=== PATIENT | female | born 1975 | race American Indian/Alaskan Native ===

== ENCOUNTER 2017-01-14 22:58 | Day surgery (SDC) | payer MEDICAID ==
[2017-01-15 01:27] LABS: Hematocrit 33.4 % (30.3-42.9); Hemoglobin 11.7 gm/dl (10.1-14.3); Mean Corpuscular HGB Conc 35 % (30-34); Mean Corpuscular Hemoglobin 27 pg (28-32); Mean Corpuscular Volume 77 fl (79-97); Platelet Count 306 K/mm3 (140-440); Red Blood Count 4.36 M/mm3 (3.65-5.03); Red Cell Distribution Width 16.1 % (13.2-15.2); White Blood Count 11.8 K/mm3 (4.5-11.0)
[2017-01-15 02:52] LABS: Bilirubin,Urine NEG (Negative); Blood,Urine LG (Negative); Ketones,Urine NEG (Negative); Leukocyte Esterase,Urine SM (Negative); Mucus,Urine FEW /HPF; Nitrite,Urine NEG (Negative); Urobilinogen,Urine < 2.0 mg/dL (<2.0)
--- NOTE | 2017-01-15 03:59 | Ultrasound Report ---
FINAL REPORT PROCEDURE: US OB \T\lt; = 14 WEEKS FETUS TECHNIQUE: Real-time transabdominal sonography of the uterus, placenta, amniotic fluid, adnexa, and fetus was performed with image documentation. Measurements were obtained to determine age/size. M-mode Doppler was used to document heartbeat. CPT 79671 HISTORY: vaginal bleeding COMPARISON: No prior studies are available for comparison. FINDINGS: There is an intrauterine gestational sac without evidence of pole, yolk sac or cardiac activity. There is an adjacent subchorionic hematoma measuring 4 millimeters. The mean sac diameter is 2.8 centimeters which corresponds to an estimated gestational age of 7 weeks and 6 days. The right ovary is not seen. Left ovary measures 2.5 x 1.6 x 2.7 centimeters. There is a 1.1 centimeters cyst. There is no torsion. There is no free fluid. IMPRESSION: Gestational sac corresponding to 7 weeks 6 day . However there is no pole, yolk sac or cardiac activity. Blighted ovum not excluded. Correlation with beta HCG measurements may be helpful. There is a 4 millimeter subchorionic hematoma. No ectopic is seen. The right ovary is not seen. There is a 1.1 centimeter cyst in the left ovary.
--- NOTE | 2017-01-15 04:00 | Ultrasound Report ---
FINAL REPORT PROCEDURE: US OB TRANSVAGINAL TECHNIQUE: Real-time TRANSVAGINAL sonography of the uterus, placenta, amniotic fluid, adnexa, and fetus was performed with image documentation. Measurements were obtained to determine age/size. M-mode Doppler was used to document heartbeat. HISTORY: vaginal bleeding COMPARISON: No prior studies are available for comparison. FINDINGS: There is an intrauterine gestational sac without evidence of pole, yolk sac or cardiac activity. There is an adjacent subchorionic hematoma measuring 4 millimeters. The mean sac diameter is 2.8 centimeters which corresponds to an estimated gestational age of 7 weeks and 6 days. The right ovary is not seen. Left ovary measures 2.5 x 1.6 x 2.7 centimeters. There is a 1.1 centimeters cyst. There is no torsion. There is no free fluid. IMPRESSION: Gestational sac corresponding to 7 weeks 6 day . However there is no pole, yolk sac or cardiac activity. Blighted ovum not excluded. Correlation with beta HCG measurements may be helpful. There is a 4 millimeter subchorionic hematoma. No ectopic is seen. The right ovary is not seen. There is a 1.1 centimeter cyst in the left ovary.
[2017-01-15 06:42] LABS: Anisocytosis 1+; Basophils % (Manual) 0 % (0.0-1.8); Blastocytes % (Manual) 0 %; Stomatocytes Few
[2017-01-15 06:43] LABS: Diff Status Complete; Platelet Estimate Consistent w Auto
[2017-01-15] MEDS ORDERED: TYLENOL PO ONE (09:24)
[2017-01-15] MEDS ORDERED: MACROBID PO ONE (09:27)
--- NOTE | 2017-01-15 09:28 | Emergency Department Report ---
ED Female HPI - General Chief complaint: Vaginal Bleeding Stated complaint: VAGINAL BLEEDING/11 WKS PREG Time Seen by Provider: 01/15/17 08:24 Source: patient Mode of arrival: Ambulatory Limitations: No Limitations - History of Present Illness Initial comments: 41-year-old female witha past medical history presents to the hospital 11 weeks complaining of suprapubic cramping and vaginal bleeding that started last night. Pain is rated 10/10 in intensity, constant, worse palpation, no alleviating factors. Patient also started having vaginal bleeding with passage of clots and has used 8 pads since symptom onset last night. This is her fourth and she has 2 living children a history one miscarriage. She states she had outpatient ultrasound last week and was told that it was too tiny see anything and she was scheduled for repeat ultrasound in the next 2 days. - Related Data Home Medications Medication Instructions Recorded Confirmed Last Taken Acetaminophen with Codeine 1 tab PO PRN PRN 10/27/14 10/27/14 10/26/14 21:00 [Acetaminophen-Cod #3 Tablet] 1 Valacyclovir HCl [valACYclovir] 400 mg PO TID 10/27/14 10/27/14 10/26/14 21:00 400 Previous Rx's Medication Instructions Recorded Last Taken Type Ferrous Sulfate [Feosol 325 MG tab] 325 mg PO BID #60 tablet 10/27/14 Unknown Rx HYDROcodone/APAP 5-325 [[place] 1 each PO Q6HR PRN #30 tablet 10/27/14 Unknown Rx 5/325] Ibuprofen [Motrin] 800 mg PO Q8H PRN #30 tablet 10/27/14 Unknown Rx [id number]/Iron Fumarate/FA/Dss 1 each PO QDAY #30 tablet 10/27/14 Unknown Rx [ 19 Tablet] Allergies Allergy/AdvReac Type Severity Reaction Status Date / Time aspirin AdvReac Unknown Verified 10/28/14 05:08 ED Review of Systems ROS: Stated complaint: VAGINAL BLEEDING/11 WKS PREG Other details as noted in HPI Comment: All other systems reviewed and negative Other: Constitutional: No fevers chills Eyes: No eye pain visual changes ENT: No ear pain or throat pain Neck: Denies pain Respiratory: Denies cough wheezing shortness of breath Cardiovascular: Denies chest pain, palpitations, syncope GI: As per HPI : Denies dysuria Musculoskeletal: Denies back pain, joint swelling Skin: Denies rash, lesions, erythema Neurologic: Denies headache, numbness, weakness Psychiatric: Denies suicidal ideation, hallucinations Hematological/lymphatic: Denies easy bruising, lymphadenopathy ED Past Medical Hx - Past Medical History Previous Medical History?: No Hx Hypertension: No Hx Congestive Heart Failure: No Hx Diabetes: No Hx Deep Vein Thrombosis: No Hx Renal Disease: No Hx Sickle Cell Disease: No Hx Seizures: No Hx Asthma: No Hx COPD: No Hx HIV: No - Surgical History Past Surgical History?: No - Social History Smoking Status: Never Smoker Substance Use Type: None - Medications Home Medications: Home Medications Medication Instructions Recorded Confirmed Last Taken Type Acetaminophen with Codeine 1 tab PO PRN PRN 10/27/14 10/27/14 10/26/14 21:00 History [Acetaminophen-Cod #3 Tablet] 1 Ferrous Sulfate [Feosol 325 MG tab] 325 mg PO BID #60 tablet 10/27/14 Unknown Rx HYDROcodone/APAP 5-325 [[place] 1 each PO Q6HR PRN #30 tablet 10/27/14 Unknown Rx 5/325] Ibuprofen [Motrin] 800 mg PO Q8H PRN #30 tablet 10/27/14 Unknown Rx [id number]/Iron Fumarate/FA/Dss 1 each PO QDAY #30 tablet 10/27/14 Unknown Rx [ 19 Tablet] Valacyclovir HCl [valACYclovir] 400 mg PO TID 10/27/14 10/27/14 10/26/14 21:00 History 400 ED Physical Exam - General Limitations: No Limitations - Other Other exam information: General: No limitations, patient is alert in no acute distress Head exam: Atraumatic, normocephalic Eyes exam: Normal appearance ENT: Moist mucous membrane, normal oropharynx Neck exam: Normal inspection, full range of motion, no meningismus nontender Respiratory exam: Clear to auscultation bilateral, no wheezes, rales, crackles Cardiovascular: Normal rate and rhythm, normal heart sounds Abdomen: Soft, nondistended, serum pubic tenderness, with normal bowel sounds, no rebound, or guarding Extremity: Full range of motion normal inspection no deformity Back: Normal Inspection, full range of motion, no tenderness Neurologic: Alert, oriented x3, cranial nerves intact, no motor or sensory deficit Psychiatric: normal affect, normal mood Skin: Warm, dry, intact ED Course Vital Signs 01/15/17 01/15/17 01/15/17 00:26 03:58 07:08 Temperature 99.1 F 98.1 F 98.9 F Pulse Rate 73 75 77 Respiratory 18 14 16 Rate Blood Pressure 160/117 132/93 Blood Pressure 132/76 [Left] O2 Sat by Pulse 100 99 100 Oximetry 01/15/17 01/15/17 09:00 11:30 Temperature 98.5 F Pulse Rate 74 79 Respiratory 16 16 Rate Blood Pressure Blood Pressure 152/92 144/91 [Left] O2 Sat by Pulse 100 99 Oximetry - Reevaluation(s) Reevaluation #1: 01/15/17 09:28 Macrobid and Tylenol ordered. - Consultations Consultation #1: 01/15/17 09:28 REGISTERED CLINICAL DIETITIAN paged 01/15/17 09:[address] Garcia network controller STRADDLE BUGGY OPERATOR. He will, evaluated the patient once he is done with his surgery. 01/15/17 13:30 Dr Garcia in ED and will take pt to the OR ED Medical Decision Making - Lab Data Result diagrams: 01/15/17 00:55 Lab Results 01/15/17 01/15/17 01/15/17 Range/Units 00:55 00:55 00:55 WBC 11.8 H (4.5-11.0) K/mm3 RBC 4.36 (3.65-5.03) M/mm3 Hgb 11.7 (10.1-14.3) gm/dl Hct 33.4 (30.3-42.9) % MCV 77 L (79-97) fl MCH 27 L (28-32) pg MCHC 35 H (30-34) % RDW 16.1 H (13.2-15.2) % Plt Count 306 (140-440) K/mm3 Lymph # Barrel Polisher Add Manual Diff Complete Total Counted 100 Seg Neuts % (Manual) 54.0 (40.0-70.0) % Band Neutrophils % 0 % Lymphocytes % (Manual) 41.0 H (13.4-35.0) % Reactive Lymphs % (Man) 0 % Monocytes % (Manual) 4.0 (0.0-7.3) % Eosinophils % (Manual) 1.0 (0.0-4.3) % Basophils % (Manual) 0 (0.0-1.8) % Metamyelocytes % 0 % Myelocytes % 0 % Promyelocytes % 0 % Blast Cells % 0 % Nucleated RBC % Not Reportable Seg Neutrophils # Man 6.4 (1.8-7.7) K/mm3 Band Neutrophils # 0.0 K/mm3 Lymphocytes # (Manual) 4.8 (1.2-5.4) K/mm3 Abs React Lymphs (Man) 0.0 K/mm3 Monocytes # (Manual) 0.5 (0.0-0.8) K/mm3 Eosinophils # (Manual) 0.1 (0.0-0.4) K/mm3 Basophils # (Manual) 0.0 (0.0-0.1) K/mm3 Metamyelocytes # 0.0 K/mm3 Myelocytes # 0.0 K/mm3 Promyelocytes # 0.0 K/mm3 Blast Cells # 0.0 K/mm3 WBC Morphology Not Reportable Hypersegmented Neuts Not Reportable Hyposegmented Neuts Not Reportable Hypogranular Neuts Not Reportable Smudge Cells Not Reportable Toxic Granulation Not Reportable Toxic Vacuolation Not Reportable Dohle Bodies Not Reportable Pelger-Huet Anomaly Not Reportable [place] Rods Not Reportable Platelet Estimate Consistent w auto Clumped Platelets Not Reportable Plt Clumps, EDTA Not Reportable Large Platelets Not Reportable Giant Platelets Not Reportable Platelet Satelliting Not Reportable Plt Morphology Comment Not Reportable RBC Morphology Not Reportable Dimorphic RBCs Not Reportable Polychromasia Not Reportable Hypochromasia Not Reportable Poikilocytosis Not Reportable Anisocytosis 1+ Microcytosis Not Reportable Macrocytosis Not Reportable Spherocytes Not Reportable Pappenheimer Bodies Not Reportable Sickle Cells Not Reportable Target Cells Not Reportable Tear Drop Cells Not Reportable Ovalocytes Not Reportable Stomatocytes Few Helmet Cells Not Reportable [place] Bodies Not Reportable [place] Rings Not Reportable [place] Cells Not Reportable Bite Cells Not Reportable Crenated Cell Not Reportable Elliptocytes Not Reportable Acanthocytes (Spur) Not Reportable Rouleaux Not Reportable Hemoglobin C Crystals Not Reportable Schistocytes Not Reportable Malaria parasites Not Reportable Ramesh Bodies Not Reportable Hem Pathologist Commnt No HCG, Quant 1781 H (0-4) mIU/mL Urine Color (Yellow) Urine Turbidity (Clear) Urine pH (5.0-7.0) Ur Specific [place] (1.003-1.030) Urine Protein (Negative) mg/dL Urine Glucose (UA) (Negative) mg/dL Urine Ketones (Negative) mg/dL Urine Blood (Negative) Urine Nitrite (Negative) Ur Reducing Substances Urine Bilirubin (Negative) Urine Ictotest Urine Urobilinogen (<2.0) mg/dL Ur Leukocyte Esterase (Negative) Urine WBC (Auto) (0.0-6.0) /HPF Urine RBC (Auto) (0.0-6.0) /HPF U Epithel Cells (Auto) (0-13.0) /HPF Urine Mucus /HPF Urine HCG, Qual (Negative) Blood Type O POSITIVE CHIDI Antibody Screen Negative 01/15/17 Range/Units 02:19 WBC (4.5-11.0) K/mm3 RBC (3.65-5.03) M/mm3 Hgb (10.1-14.3) gm/dl Hct (30.3-42.9) % MCV (79-97) fl MCH (28-32) pg MCHC (30-34) % RDW (13.2-15.2) % Plt Count (140-440) K/mm3 Lymph # Add Manual Diff Total Counted Seg Neuts % (Manual) (40.0-70.0) % Band Neutrophils % % Lymphocytes % (Manual) (13.4-35.0) % Reactive Lymphs % (Man) % Monocytes % (Manual) (0.0-7.3) % Eosinophils % (Manual) (0.0-4.3) % Basophils % (Manual) (0.0-1.8) % Metamyelocytes % % Myelocytes % % Promyelocytes % % Blast Cells % % Nucleated RBC % Seg Neutrophils # Man (1.8-7.7) K/mm3 Band Neutrophils # K/mm3 Lymphocytes # (Manual) (1.2-5.4) K/mm3 Abs React Lymphs (Man) K/mm3 Monocytes # (Manual) (0.0-0.8) K/mm3 Eosinophils # (Manual) (0.0-0.4) K/mm3 Basophils # (Manual) (0.0-0.1) K/mm3 Metamyelocytes # K/mm3 Myelocytes # K/mm3 Promyelocytes # K/mm3 Blast Cells # K/mm3 WBC Morphology Hypersegmented Neuts Hyposegmented Neuts Hypogranular Neuts Smudge Cells Toxic Granulation Toxic Vacuolation Dohle Bodies Pelger-Huet Anomaly Ashlyn Rods Platelet Estimate Clumped Platelets Plt Clumps, EDTA Large Platelets Giant Platelets Platelet Satelliting Plt Morphology Comment RBC Morphology Dimorphic RBCs Polychromasia Hypochromasia Poikilocytosis Anisocytosis Microcytosis Macrocytosis Spherocytes Pappenheimer Bodies Sickle Cells Target Cells Tear Drop Cells Ovalocytes Stomatocytes Helmet Cells [place] Bodies [place] Rings [place] Cells Bite Cells Crenated Cell Elliptocytes Acanthocytes (Spur) Rouleaux Hemoglobin C Crystals Schistocytes Malaria parasites Ramesh Bodies Hem Pathologist Commnt HCG, Quant (0-4) mIU/mL Urine Color Yellow (Yellow) Urine Turbidity Slightly-cloudy (Clear) Urine pH 6.0 (5.0-7.0) Ur Specific [place] 1.013 (1.003-1.030) Urine Protein 30 mg/dl (Negative) mg/dL Urine Glucose (UA) Neg (Negative) mg/dL Urine Ketones Neg (Negative) mg/dL Urine Blood Lg (Negative) Urine Nitrite Neg (Negative) Ur Reducing Substances Not Reportable Urine Bilirubin Neg (Negative) Urine Ictotest Not Reportable Urine Urobilinogen < 2.0 (<2.0) mg/dL Ur Leukocyte Esterase Sm (Negative) Urine WBC (Auto) 19.0 H (0.0-6.0) /HPF Urine RBC (Auto) 13.0 (0.0-6.0) /HPF U Epithel Cells (Auto) 9.0 (0-13.0) /HPF Urine Mucus Few /HPF Urine HCG, Qual Positive A (Negative) Blood Type CHIDI Antibody Screen - Radiology Data Radiology results: report reviewed Transvaginal/pelvic ultrasound: Gestational sac corresponding to 7 weeks 6 days . No pole, yolk sac or cardiac activity. Blighted ovum is suspected. Tim subchorionic hematoma. No ectopic . Right ovary not seen. 1.1 cm cyst in the left ovary - Medical Decision Making Patient's blood type is O+ and therefore she does not look, RhoGAM. She has some mild Y [place] urine will be treated with Macrobid. - Differential Diagnosis miscarriage, threatened , ectopic Critical Care Time: No Critical care attestation.: If time is entered above; I have spent that time in minutes in the direct care of this critically ill patient, excluding procedure time. ED Disposition Clinical Impression: Blighted ovum, Incomplete miscarriage, Urine WBC increased Disposition: OP ADMITTED IP TO THIS HOSP Is pt being admited?: Yes Condition: Stable Time of Disposition: 13:29 (Dr Garcia/STRADDLE BUGGY OPERATOR)
--- NOTE | 2017-01-15 13:32 | Short Stay Summary ---
Short Stay Documentation Date of service: 01/15/17 Narrative H&P: Pt is a 41-year-old black female LMP 10/28/16 with a past medical history of hypertension, presents to the hospital @ 11 weeks complaining of suprapubic cramping and vaginal bleeding that started last night. Pain is rated 10/10 in intensity, constant, worse with palpation, and no alleviating factors. Patient also started having vaginal bleeding with passage of clots and has used 8 pads since symptom onset last night. This is her fourth and she has 2 living children a history one miscarriage. She states she had outpatient ultrasound last week and was told that it was too tiny see anything and she was scheduled for repeat ultrasound in the next 2 days. Today her pelvic u/s an intrauterine gestational sac corresponding to 7 weeks 6 days without evidence of pole, yolk sac or cardiac activity. Her H/H is 11.7/ 33.4 and Bhcg is 1781. She will therefore be admitted for a D&C due to Incomplete . - History Principal diagnosis: Incomplete H&P: obtained from office Past Medical History: hypertension Past Surgical History: Social history: no significant social history, - Allergies and Medications Current Medications: Allergies aspirin Adverse Reaction (Verified 10/28/14 05:08) Unknown PT STATES SHE GETS CRACKED LIPS Home Medications Medication Instructions Recorded Confirmed Last Taken Type Acetaminophen with Codeine 1 tab PO PRN PRN 10/27/14 10/27/14 10/26/14 21:00 History [Acetaminophen-Cod #3 Tablet] 1 Ferrous Sulfate [Feosol 325 MG tab] 325 mg PO BID #60 tablet 10/27/14 Unknown Rx HYDROcodone/APAP 5-325 [[place] 1 each PO Q6HR PRN #30 tablet 10/27/14 Unknown Rx 5/325] Ibuprofen [Motrin] 800 mg PO Q8H PRN #30 tablet 10/27/14 Unknown Rx [id number]/Iron Fumarate/FA/Dss 1 each PO QDAY #30 tablet 10/27/14 Unknown Rx [ 19 Tablet] Valacyclovir HCl [valACYclovir] 400 mg PO TID 10/27/14 10/27/14 10/26/14 21:00 History 400 - Physical exam General appearance: mild distress Integumentary: no rash HEENT: Atraumatic Lungs: Clear to auscultation Breasts: deferred Heart: Regular rate Gastrointestinal: normal Female Genitourinary: deferred Rectal Exam: deferred Extremities: No edema Neurological: Normal speech - Brief post op/procedure progress note Date of procedure: 01/15/17 Pre-op diagnosis: 1. Blighted ovum 2. Incomplete Post-op diagnosis: same Procedure: D&C Anesthesia: MAC Findings: An 8-10 weeks size uterus with moderate amounts of POC Surgeon: JULIA KAM Estimated blood loss: 50-100ml Pathology: list (POC) Specimen disposition: to lab Condition: stable - Hospital course Hospital course: Unremarkable. - Disposition Condition at discharge: Good Disposition: DISCHARGED TO HOME OR SELFCARE - Discharge Diagnoses (1) Blighted ovum Status: Resolved Short Stay Discharge Plan Activity: no restrictions Diet: regular Follow up with: PRIMARY CARE, [Primary Care Provider] - 7 Days JULIA KAM MD [Staff Physician] - 14 Days Prescriptions: Doxycycline [Vibramycin CAP] 100 mg PO Q12HR #14 capsule HYDROcodone/APAP 5-325 [[place] 5/325] 1 each PO Q6HR PRN #20 tablet PRN Reason: Pain Methylergonovine [Methergine] 0.2 mg PO Q8HR #6 tablet
[2017-01-15] MEDS ORDERED: NACL 0.9% 1000 ML 1,000 ML IV SCH (14:00)
[2017-01-15] MEDS ORDERED: VERSED IV NR (14:00)
[2017-01-15] MEDS ORDERED: PEPCID IV NR (14:00)
[2017-01-15] MEDS ORDERED: DIPRIVAN 10 MG/ML IV ONE (14:04)
[2017-01-15] MEDS ORDERED: DILAUDID ONE (14:04)
--- NOTE | 2017-01-15 14:23 | Anesthesia Day of Surgery ---
Anesthesia Day of Surgery - Day of Surgery Patient Examined: Yes Patient H&P Reviewed: Yes Patient is NPO: No
--- NOTE | 2017-01-15 14:24 | Anesthesia Consultation ---
Anesthesia Consult and Med Hx Date of service: 01/15/17 - Airway Anesthetic Teeth Evaluation: Good ROM Head & Neck: Adequate Mental/Hyoid Distance: Inadequate Mallampati Class: Class III Intubation Access Assessment: Possibly Difficult - Pulmonary Exam CTA: Yes - Cardiac Exam Cardiac Exam: RRR - Pre-Operative Health Status ASA Pre-Surgery Classification: ASA2, Emergency Proposed Anesthetic Plan: General - Pulmonary Hx Smoking: No Hx Asthma: No COPD: No Hx Pneumonia: No - Cardiovascular System Hx Hypertension: Yes - Central Nervous System Hx Seizures: No Hx Psychiatric Problems: No - Gastrointestinal Hx Gastroesophageal Reflux Disease: Yes - Endocrine Hx Renal Disease: No Hx End Stage Renal Disease: No Hx Hypothyroidism: No Hx Hyperthyroidism: No - Hematic Hx Anemia: No Hx Sickle Cell Disease: No - Other Systems Hx Alcohol Use: No - Additional Comments Anesthesia Medical History Comments: missed AB
--- NOTE | 2017-01-15 14:46 | Admit Criteria Form ---
Admission Criteria Documentation: OBSTETRIC AND GYNECOLOGIC DISEASE GRG Clinical Indications for Admission to Inpatient Care (Place 'X' for any and all applicable criteria): Hospital admission is needed for appropriate care of the patient because of 1 or more of the following (1)(2)(3): [ ]I. Hemodynamic instability, as indicated by 1 or more of the following (1)( 2)(3)(4)(5): [ ]a) Vital signs or other findings not as expected for chronic patient condition or baseline [ ]b) Instability indicated by 1 or more of the following: [ ]i) Hypotension [ ]ii) Symptomatic tachycardia unresponsive to treatment (eg, analgesia, fluids, sedation as indicated) [ ]iii) Inadequate perfusion indicated by 1 or more of the following: [ ]A. Lactic acidosis (greater than 2 mmol/ L) [ ]B. New abnormal capillary refill ( greater than 3 seconds) [ ]C. Reduced urine output [ ]D. New altered mental status [ ]iv) Orthostatic vital sign changes unresponsive to treatment (eg, fluids) [ ]v) Multiple IV fluid boluses required to maintain adequate blood pressure or perfusion [ ]vi) IV inotropic or vasopressor medication required to maintain adequate blood pressure or perfusion [ ]II. Obstetric infection requiring hospitalization indicated by 1 or more of the following(13)(14): [ ]a) Chorioamnionitis [ ]b) Endometritis (except mild endometritis) [ ]c) Pelvic abscess [ ]d) Peritonitis [ ]e) Septic pelvic thrombophlebitis [ ]III. Amniotic fluid or pulmonary embolism(4)(5)(6) [ ]IV. Suspected peritonitis or ectopic requiring monitoring beyond scope of 24 hours or observation care(7)(8) [ ]V. compromise requiring hospitalization indicated by ALL of the following(9)(10): [ ]a) compromise indicated by 1 or more of the following(11): [ ]i) Abnormal heart rate monitoring [ ]ii) Abnormal contraction stress test [ ]iii) Abnormal biophysical profile [ ]iv) Abnormal Doppler flow in vessels (ie, Doppler velocimetry) (12) [ ]b) Persistence of compromise indicators during evaluation and observation monitoring [ ]. Ovarian hyperstimulation syndrome requiring hospitalization[A] indicated by ALL of the following(15): [ ]a) Recent ovarian stimulation with gonadotropins, or evidence on ultrasound of spontaneous emergence of large number of ovarian follicles [ ]b) Evidence of severe ovarian hyperstimulation syndrome indicated by 1 or more of the following: [ ]i) Abdominal pain unresponsive to oral therapy [ ]ii) Acute respiratory distress syndrome [ ]iii) Electrolyte imbalance ( eg, hyponatremia, hyperkalemia) [ ]iv) Elevated liver enzymes [ ]v) Evidence of thromboembolism [ ]vi) Hemoconcentration (hematocrit greater than 45 % (0.45)) [ ]vii) Inability to maintain oral intake adequate to prevent hemoconcentration [ ]viii) Marked hypotension from baseline (eg, SBP 20 mmHg below patients usual pressure) [ ]ix) Oliguria or anuria [ ]x) Ovarian torsion [ ]xi) Pleural or pericardial effusion on x-ray or echocardiogram [ ]xii) Rapid increase in serum creatinine to greater than 1.2 mg/dL (106 micromoles/L) or creatinine clearance less than 50 mL/min/1.73m2 (0.84 mL/ sec/1.73m2) [ ]xiii) Ruptured ovarian cyst with hemorrhage [ ]xiv) Severe abdominal pain or peritoneal signs [ ]xv) Tense ascites that cannot be managed with paracentesis in outpatient setting [ ]VII.Pelvic infection requiring hospitalization indicated by 1 or more of the following (16): [ ]a) Outpatient treatment has failed or is not appropriate (eg, inpatient monitoring required) [ ]b) Pelvic abscess [ ]c) Surgical emergency cannot be excluded (eg, rigid abdomen) [ ]d) Vomiting precluding outpatient and observation care management VIII. loss complications requiring inpatient medical treatment indicated by 1 or more of the following (4)(7)(9): [ ]a) Fever [ ]b) Peritonitis [ ]c) Sepsis [ ]d) Severe abdominal pain [ ]IX. or patient requiring monitoring for severe heart failure, pulmonary disease, or other comorbid condition (eg, peripartum cardiomyopathy) (4)(17) [ ]X. patient with rupture of membranes requiring hospitalization indicated by ANY ONE of the following: [ ]a) Chorioamnionitis, cloudy amniotic fluid, or other evidence of infection [ ]b) compromise or other need for monitoring (11) [ ]c) Gestation longer than 23 weeks and ANY ONE of the following: [ ]i) Abnormal (noncephalic) presentation [ ]ii) Inadequate home environment (eg, home too far from hospital, unable to rapidly return to hospital) [ ]d) Temperature greater than 100.4 degrees F (38 degrees C)( oral) [ ]e) Threatened labor requiring monitoring beyond scope (eg, over 24 hours) of observation Care [ ] XI. complications, including severe lacerations, infections, or retained placenta (19) [ ] XII.Uterine bleeding with high-risk features indicated by ANY ONE of the following (4): [ ]a) Active major hemorrhage (eg, hemorrhage) [ ]b) Coagulopathy with active bleeding [ ]c) Gestational trophoblastic disease (eg, molar ) (20 ) [ ]d) (longer than 23 weeks) and ANY ONE of the following: [ ]i) Pain [ ]ii) Placental abruption, known or suspected [ ]iii) Placenta accrete, known or suspected(21) [ ]iv) Placenta previa, known or suspected [ ]v) Vasa previa [ ]e) Severe anemia [X ]XIII. Obstetric or Gynecologic Disease, condition or symptom for which ANY ONE of the following: [X ]a) Emergency and observation care have failed or are not considered appropriate ( Also use General Criteria: Observation Care Criteria as appropriate) [ ]b) Presence of a General Admission Criteria or Pediatric General Admission Criteria The original [facility] [employer] content created by [facility] has been revised. The portions of the content which have been revised are identified through the use of italic text or in bold, and [facility] has neither reviewed nor approved the modified material.All other unmodified content is copyright [facility]. Please see references footnoted in the original [facility] edition 2016 Admission Criteria Met: Yes
[2017-01-15] MEDS ORDERED: SILVER NITRATE TP ONE (14:52)
[2017-01-15] MEDS ORDERED: METHERGINE IM ONE (14:53)
[2017-01-15] MEDS ORDERED: DILAUDID IV PRN (15:16)
[2017-01-15] MEDS ORDERED: ZOFRAN IV PRN (15:16)
[2017-01-15] MEDS ORDERED: REGLAN IV PRN (15:16)
[2017-01-15] MEDS ORDERED: BREVIBLOC IV ONE (15:37)
[2017-01-15] MEDS ORDERED: DECADRON ONE (15:37)
[2017-01-15] MEDS ORDERED: ANCEF ONE ×2 (15:37)
[2017-01-15] MEDS ORDERED: TORADOL ONE (15:37)
[2017-01-15] MEDS ORDERED: ZOFRAN ONE (15:37)
--- NOTE | 2017-01-15 15:49 | Operative Report ---
Operative Report Operative Report: PREOPERATIVE DIAGNOSIS: 1. Blighted ovum 2. Incomplete POSTOPERATIVE DIAGNOSIS: Same OPERATIVE PROCEDURE: Dilatation and curettage. SURGEON: Jabier Garcia MD ANESTHESIA: General Mac ANESTHESIOLOGIST: Dr. Morales ESTIMATED BLOOD LOSS: 50 mL's FINDINGS: An 8-10 week size uterus with moderate amounts of products of conception COMPLICATIONS: None COUNTS: Correct x3. PROCEDURE: After the patient was correctly identified, and after general anesthesia was administered, the patient was prepped and draped in the usual sterile fashion and placed in dorsal lithotomy position. First, the bladder was emptied using a straight catheter. Next, a speculum was placed in the vaginal vault and the anterior lip of the cervix was grasped using a single- tooth tenaculum. The uterus was sounded to 10 cm. The cervical os was sequentially dilated, and a 9 mm vaccurette was used to suction blood and products of conception from the uterine cavity. After all the products of conception were removed, the procedure was considered complete. All instruments were removed from the vagina. The patient tolerated the procedure well and was transferred to the recovery room in stable condition.
[2017-01-15] MEDS ORDERED: NACL 0.9% IR ONE (16:00)
[2017-01-15] MEDS ORDERED: NORCO 5/325 PO PRN (16:16)
[2017-01-15 16:51] VITALS: BP 137/85
== END 2017-01-15 17:32 | disposition home or self-care (01) ==
LOC: ED 22:58 → OR 01-15 14:45
PROVIDERS: ATTEND Emergency Medicine
DX: O02.0 Blighted ovum and nonhydatidiform mole (principal); I10 Essential (primary) hypertension; K21.9 Gastro-esophageal reflux disease without esophagitis; Z88.8 Allergy status to other drugs, medicaments and biological substances
CPT/HCPCS: 36415; 59812; 76801; 76817; 81001; 81025; 84702; 85007; 85025; 86850; 86900; 86901; 88305; 99285; J0690; J1100; J1170; J1885; J2210; J2250; J2405; J2704; J7030

== ENCOUNTER 2017-09-23 13:55 | Observation (INO) | payer MEDICAID ==
[2017-09-23] MEDS ORDERED: LACTATED RINGERS 500 ML IV ONE (14:32)
[2017-09-23 15:11] LABS: Hematocrit 28.9 % (30.3-42.9); Mean Corpuscular HGB Conc 35 % (30-34); Mean Corpuscular Hemoglobin 26 pg (28-32); Mean Corpuscular Volume 75 fl (79-97); Platelet Count 269 K/mm3 (140-440); Red Blood Count 3.84 M/mm3 (3.65-5.03); Red Cell Distribution Width 17.5 % (13.2-15.2)
[2017-09-23 15:16] LABS: Bacteria,Urine 2+ /HPF (Negative); Bilirubin,Urine NEG (Negative); Blood,Urine NEG (Negative); Color,Urine Yellow (Yellow); Mucus,Urine FEW /HPF; Protein,Urine <15 mg/dL mg/dL (Negative); Urobilinogen,Urine < 2.0 mg/dL (<2.0)
[2017-09-23 15:35] LABS: Alanine Aminotransferase 23 units/L (7-56)
--- NOTE | 2017-09-23 15:53 | History and Physical Report ---
History of Present Illness Date of examination: 09/23/17 Chief complaint: Blood pressure History of present illness: 42-year-old at 31+4 weeks presents with elevated blood pressure, she is a [facility] patient. Patient was seen in clinic today with noted elevation in her blood pressure to 170 systolic. She is therefore sent to labor and delivery for triage. Patient complains of headache earlier but now resolved, no scotomata no epigastric discomfort, no shortness of breath or chest pain. Headache improved at this time. In triage, her BP range has been 130-170/80-90. HELLP labs have been negative and urinalysis shows less than 15 mg proteinuria. She has not been on any antihypertensives She denies hx of CHTN Past History Past Medical History: no pertinent history Past Surgical History: section (# 2), D&C CLINICAL PROGRAM COORDINATOR History: denies: chlamydia, gonorrhea, hepatitis B, hepatitis C, herpes, HIV , syphilis, trichomonas Social history: , full code. denies: Lives alone, lives with family, smoking - Obstetrical History Expected Date of Delivery: 11/21/17 Actual Gestation: 31 Week(s) 5 Day(s) : 6 Para: 2 Medications and Allergies Allergies Allergy/AdvReac Type Severity Reaction Status Date / Time aspirin AdvReac Unknown Verified 10/28/14 05:08 Home Medications Medication Instructions Recorded Confirmed Last Taken Type [id number]/Iron Fum/Folic/Docusate 1 each PO QDAY #30 tablet 10/27/14 09/23/17 1 Day Ago Rx [ 19 Tablet] ~09/22/17 Review of Systems Constitutional: no fever, no fatigue, no weakness Cardiovascular: high blood pressure, no chest pain, no orthopnea, no syncope, no lightheadedness, no shortness of breath, no dyspnea on exertion Respiratory: no cough, no cough with sputum, no shortness of breath, no dyspnea on exertion Gastrointestinal: no nausea, no vomiting, no heartburn, no indigestion, no dyspepsia/bloating Genitourinary: no vaginal bleeding, no vaginal discharge, no leakage of fluid, no contractions - Vital Signs Vital signs: Vital Signs Temp Resp 99.1 F 20 09/23/17 14:00 09/23/17 14:00 Temp Pulse Resp BP Pulse Ox 99.1 F 81 20 142/75 09/23/17 14:00 09/23/17 15:42 09/23/17 14:00 09/23/17 15:42 - Physical Exam Cardiovascular: Regular rate, Normal S1, Normal S2 Lungs: Positive: Clear to auscultation, Normal air movement Abdomen: Positive: normal appearance, soft. Negative: distention, tenderness, guarding, rigidity Uterus: Positive: enlarged (EFW ~ 3200) Extremities: Positive: normal - Obstetrical FHR: category 1 Results Result Diagrams: 09/23/17 14:45 09/23/17 14:45 Abnormal lab results 09/23/17 09/23/17 Range/Units 14:45 14:45 Hgb 10.0 L (10.1-14.3) gm/dl Hct 28.9 L (30.3-42.9) % MCV 75 L (79-97) fl MCH 26 L (28-32) pg MCHC 35 H (30-34) % RDW 17.5 H (13.2-15.2) % Creatinine 0.4 L (0.7-1.2) mg/dL Lactate Dehydrogenase 221 H (91-180) units/L All other labs normal. Assessment and Plan A: 42-year-old at 31+4 weeks with CHTN -Cat 1 tracing -BP currently 130/80's Issues -Previous C/S X 2 -Hx of Pre-E w/ prior preg (delivered at 31 wks) -AMA -CHTN -Obesity -NICU on Diversion P: -Admit -Obtain 24-hour urine protein collection -Start Celestone course -Start labetalol 200 mg twice a day -BPP and Growth scan -MFM consult after 24 hr urine protein collection result -Start magnesium if blood pressure persistently in the severe range -Patient aware NICU on bed version, will be transferred to another facility if delivery needed - Patient Problems (1) 31 to 32 weeks gestation of Current Visit: Yes Status: Acute (2) Hypertension affecting in third trimester Current Visit: Yes Status: Acute
[2017-09-23] MEDS ORDERED: APRESOLINE IV PRN (16:04)
[2017-09-23] MEDS ORDERED: MAGNESIUM SULFATE 40GM/1000ML 40 GM/1,000 ML BAG IV SCH (18:00)
[2017-09-23] MEDS ORDERED: MAGNESIUM SULFATE 40 GM in NACL 0.9% 1000 ML 1,000 ML IV SCH (18:00)
[2017-09-23] MEDS ORDERED: MAGNESIUM SULFATE 4GM/100ML 4 GM/100 ML BAG IV ONE (18:40)
[2017-09-23] MEDS: CELESTONE SOLUSPAN IM SCH (20:00)
[2017-09-23] MEDS ORDERED: AMBIEN PO PRN (22:57)
[2017-09-23] MEDS: NORMODYNE PO SCH (23:11)
--- NOTE | 2017-09-24 02:28 | Ultrasound Report ---
FINAL REPORT EXAM: US OB BPP WO NON-STRESS HISTORY: CHTN in TECHNIQUE: A biophysical profile was obtained. FINDINGS: For breathing movements, a score of 2 out of 2 was obtained. For movements, a score of 2 out of 2 was obtained. For posterior in tone, a score of 2 out of 2 was obtained. For qualitative amniotic fluid volume, a score of 2 out of 2 was obtained. The biophysical profile score is 8 out of 8. The heart is 144 BPM. IMPRESSION: Biophysical profile score of 8 out of 8. heart rate is 144 BPM
--- NOTE | 2017-09-24 02:31 | Ultrasound Report ---
FINAL REPORT EXAM: US OB > = 14 WEEKS FETUS HISTORY: CHTN at 31 wks r/o Pre-E TECHNIQUE: Transabdominal imaging was obtained of the pelvis. FINDINGS: There is a single intrauterine with variable position corresponding to a 31 week 0 day based on sonographic criteria. The heart is 144 BPM. The placenta is anterior in position and is grade 1. The placenta appears low lying. The ALINA is 17 centimeters which is normal. There are no gross anomalies involving the stomach, kidneys, bladder, diaphragm, four-chamber heart, three-vessel cord, or umbilical cord insertion. Neuro anatomy in the spine are not adequately seen for evaluation. The estimated weight is 1579 grams. IMPRESSION: Single viable intra , 31 weeks 0 days as described.
[2017-09-24] MEDS: LACTATED RINGERS 1,000 ML IV SCH ×2 (05:49→15:40)
--- NOTE | 2017-09-24 06:31 | Event Note ---
Date: 09/24/17 Late Entry: Obtained patient's lab report from the clinic yesterday. 24-hour urine protein obtained on 08/04/2017 shows 350 mg of protein. Patient was at 24+3 weeks gestation at that time. She therefore most likely has preeclampsia with severe features. Sonogram obtained yesterday shows adequate growth Placenta is possibly low lying?? She was started on magnesium last night due to elevated blood pressures Plan: Will place consult to [facility] We'll need to follow up on report of ?low Placenta, need to rule out morbidly adherent placenta
[2017-09-24] MEDS ORDERED: TYLENOL PO PRN (09:25)
[2017-09-24] MEDS: NORMODYNE PO SCH (09:42)
--- NOTE | 2017-09-24 17:51 | Progress Note ---
Assessment and Plan - Patient Problems (1) 31 to 32 weeks gestation of Onset Date: 09/24/17 Current Visit: Yes Status: Acute Plan to address problem: A: IUP @ 31 5/7 weeks Chronic hypertension with suspected Superimposed Preeclampsia - BP's currently stable on Labetolol 200mg BID AMA Previous C Section x 2 P: Continue present management Awaiting [facility] consultation Received 1st dose of Celestone - 2nd dose due at 8pm Awaiting 24hr urine results (2) Hypertension affecting in third trimester Onset Date: 09/24/17 Current Visit: Yes Status: Acute Subjective - Subjective Date of service: 09/24/17 Principal diagnosis: IUP @ 31 5/7 weeks; Preeclampsia Patient reports: new complaints (left sided back pains), movement normal, no loss of fluid, no vaginal bleeding Objective - Vital Signs Vital Signs: Vital Signs - 12hr 09/24/17 09/24/17 09/24/17 06:07 06:37 07:06 Temperature Pulse Rate 99 H 90 93 H Respiratory Rate Blood Pressure 116/66 106/53 119/56 09/24/17 09/24/17 09/24/17 07:30 08:35 09:34 Temperature 98.4 F Pulse Rate 101 H 109 H Respiratory 20 Rate Blood Pressure 140/72 124/71 09/24/17 09/24/17 09/24/17 09:42 10:34 11:34 Temperature Pulse Rate 109 H 108 H Respiratory Rate Blood Pressure 124/71 138/65 145/67 09/24/17 09/24/17 09/24/17 12:36 13:34 14:35 Temperature Pulse Rate 100 H 98 H 102 H Respiratory Rate Blood Pressure 139/70 116/58 111/70 09/24/17 09/24/17 09/24/17 15:35 16:36 17:35 Temperature 98.1 F Pulse Rate 97 H 95 H 102 H Respiratory Rate Blood Pressure 135/85 137/76 139/83 - Exam Cardiovascular: Regular rate Lungs: Clear to auscultation Abdomen: Present: normal appearance, tenderness (left side) Uterus: Present: normal FHR: category 1 Uterine Contraction Monitor Mode: External Uterine Contraction Pattern: Absent Uterine Tone Measurement Phase: Contraction - Labs Labs: Abnormal Labs 09/23/17 09/23/17 09/24/17 14:45 14:45 12:34 Hgb 10.0 L Hct 28.9 L MCV 75 L MCH 26 L MCHC 35 H RDW 17.5 H Creatinine 0.4 L Magnesium 3.40 H Lactate Dehydrogenase 221 H Laboratory Results - last 24 hr 09/24/17 09/24/17 07:31 12:34 Magnesium 3.40 H Blood Type O POSITIVE Antibody Screen Negative - Results US- obstetric: report reviewed (BPP 03/25; No evidence of placental abruption)
[2017-09-24 19:14] VITALS: BP 134/79
[2017-09-24] MEDS: CELESTONE SOLUSPAN IM SCH (19:35)
--- NOTE | 2017-09-24 19:42 | Consultation ---
History of Present Illness Consult date: 09/24/17 Reason for consult: gestational hypertension History of present illness: 42-year-old at 31+5 weeks presents with elevated blood pressure, she is a [facility] patient. Patient was seen in clinic today with noted elevation in her blood pressure to 170 systolic. She is therefore sent to labor and delivery for triage. Yesterday the patient had elevated BP and a headache earlier but they have now resolved, no scotomata no epigastric discomfort, no shortness of breath or chest pain. In triage, her BP range has been 130-170/80-90. HELLP labs have been negative and urinalysis shows less than 15 mg proteinuria. She has not been on any antihypertensives She denies hx of CHTN. PAST OB HISTORY: 2013: CS at 29 weeks. complicated by PIH. BW: 1 pound 9 oz. 2014: CS at term. No PIH. BW: 8 pounds 7 oz. PAST MEDICAL HISTORY: DENIES CHTN. Not on antihypertensive medications. 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, gonorrhea, hepatitis B, hepatitis C, herpes, HIV , syphilis, trichomonas - Obstetrical History : 6 Medications and Allergies Allergies Allergy/AdvReac Type Severity Reaction Status Date / Time aspirin AdvReac Unknown Verified 10/28/14 05:08 Home Medications Medication Instructions Recorded Confirmed Last Taken Type [id number]/Iron Fum/Folic/Docusate 1 each PO QDAY #30 tablet 10/27/14 09/23/17 1 Day Ago Rx [ 19 Tablet] ~09/22/17 Active Meds: Active Medications Acetaminophen (Tylenol) 650 mg PO Q6H PRN PRN Reason: Pain, Mild (1-3) Betamethasone Acet/Betameth SodPhos (Celestone Soluspan) 12 mg IM Q24H COREY Stop: 09/24/17 20:01 Hydralazine HCl (Apresoline) 5 mg IV Q30MIN PRN PRN Reason: HTN SYS BP>170 &/OR ASHLEIGH>110 Lactated Ringer's (Lactated Ringers) 1,000 mls @ 125 mls/hr IV DIRECT COREY Last Admin: 09/24/17 15:40 Dose: 100 mls/hr Magnesium Sulfate 40 gm/ (Sodium Chloride) 1,080 mls @ 27 mls/hr IV DIRECT COREY PRN Reason: 1 GM/HR Last Admin: 09/23/17 20:23 Dose: 1 gm/hr, 27 mls/hr Labetalol HCl (Normodyne) 200 mg PO BID COREY Last Admin: 09/24/17 09:42 Dose: 200 mg Zolpidem Tartrate (Ambien) 5 mg PO QHS PRN PRN Reason: Sleep Last Admin: 09/23/17 23:11 Dose: 5 mg - Vital Signs Vital signs: Vital Signs Temp Resp 99.1 F 20 09/23/17 14:00 09/23/17 14:00 Temp Pulse Resp BP Pulse Ox 98.1 F 103 H 20 134/79 98 09/24/17 15:35 09/24/17 19:17 09/24/17 07:30 09/24/17 19:17 09/23/17 23:23 Results Result Diagrams: 09/23/17 14:45 09/23/17 14:45 Abnormal lab results 09/23/17 09/24/17 09/24/17 Range/Units 16:05 12:34 18:19 Magnesium 3.40 H 3.70 H (1.7-2.3) mg/dL Ur Total Protein 24 Hr 280.00 H (2-200) All other labs normal. Assessment and Plan ASSESSMENT: IUP @ 31 5/7 weeks Rule out Chronic hypertension versus new onset Preeclampsia - BP's currently stable on Labetolol 200mg BID AMA Previous C Section x 2 RECOMMENDATIONS: Continue present management Awaiting [facility] consultation Asymptomatic. Would NOT increase blood pressure medications to avoid masking preeclampsia. Status post 2nd dose Steroids. Patient is stable and a candidate for discharge home today or in AM tomorrow. She will follow-up with [facility] in one week. We reviewed the warning signs of preeclampsia with the patient today.
--- NOTE | 2017-09-24 19:55 | Discharge Summary ---
Providers - Providers Date of Admission: 09/23/17 14:32 Date of discharge: 09/24/17 Attending physician: SPENCER GILLIS 09/24/17 06:31 Consult to Physician [CONS] Routine Consulting Provider: CLIFFORD KAPADIA Reason For Exam: IUP at 31+5 wks [address] preecl[address] consult to:: R[facility] Notified:: LATRELL Phone number called:: [phone] Was contact made?: Yes If yes, spoke with:: LATRELL Time called:: 07:50 Comment:: RETURNED CALL Primary care physician: SPENCER GILLIS Hospitalization Reason for admission: IUP - (IUP @ 31 4/7 weeks), observation Other procedures: none complications: none Discharge diagnosis: other (IUP @ 31 5/7 weeks; Preeclampsia - stable) Hospital course: Pt is a 42-year-old at 31+5 weeks who presented with elevated blood pressure, she is a [facility] patient. Patient was seen in clinic yesterday with noted elevation in her blood pressure to 170 systolic. She was therefore sent to labor and delivery for triage. Yesterday the patient had elevated BP and a headache earlier but they have now resolved, no scotomata no epigastric discomfort, no shortness of breath or chest pain. In triage, her BP range has been 130-170/80-90. HELLP labs were negative and urinalysis shows less than 15 mg proteinuria, and 24hour urine protein was 280mg. She has not previously been on any antihypertensives, and BP was controlled with Labetolol 200mg BID. She also received steroids and BPP was 8/8. She was evaluated by RENETTA and was considered stable to be discharged to home. We would NOT increase blood pressure medications to avoid masking preeclampsia. Patient is stable and a candidate for discharge home today with plans to follow- up with [facility] in one week. We reviewed the warning signs of preeclampsia with the patient today. Condition at discharge: Good Disposition: DC-01 TO HOME OR SELFCARE - Discharge Diagnoses (1) 31 to 32 weeks gestation of Status: Acute (2) Hypertension affecting in third trimester Status: Chronic Plan - Discharge Medications Prescriptions: Labetalol [Normodyne TAB] 200 mg PO BID #60 tablet - Provider Discharge Summary Activity: routine, no sex for 6 weeks, no heavy lifting 4 weeks, no strenuous exercise Diet: routine Instructions: routine Additional instructions: [] Smoking cessation referral if applicable(refer to patient education folder for contact #) [] Refer to [facility] Booklet Call your doctor immediately for: * Fever > 100.5 * Heavy vaginal bleeding ( >1 pad per hour) * Severe persistent headache * Shortness of breath * Reddened, hot, painful area to leg or breast * Drainage or odor from incision. * Keep incision clean and dry at all times and follow doctor's instructions regarding bathing/showering - Follow up plan Follow up: SPENCER GILLIS MD [Primary Care Provider] - 7 Days
[2017-09-24] MEDS ORDERED: CELESTONE SOLUSPAN IM SCH (20:00)
--- NOTE | 2017-09-25 09:07 | Ultrasound Report ---
Bilateral renal ultrasound: patient with left flank and pelvic pain. Right renal length is 12.2 cm and the left renal length is 11.9 cm. Both kidneys are echogenically normal. There is no hydronephrosis. No obvious calculus. There is a Blakely catheter in the decompressed urinary bladder. Impression: No evidence of urinary tract obstruction.
--- NOTE | 2017-09-25 15:43 | Ultrasound Report ---
LIMITED OB ULTRASOUND: pelvic pain. Gestation: Yung Position: Variable Placenta: Anterior Placental Grade: 1 Heart Rate: 137 BPM Gestational age is 31 weeks 5 days. Impression: No evidence of placental abruption or intraplacental hemorrhage.
--- NOTE | 2017-09-25 15:45 | Ultrasound Report ---
Limited abdominal ultrasound: Left lower quadrant pain. Imaging over the area of concern shows no evidence of mass or fluid. Impression: No significant finding.
== END 2017-09-24 20:10 | disposition home or self-care (01) ==
LOC: TRG 13:55 → LD 14:32 → OBSVTOIN 09-24 08:42 → INTOOBSV 09-24 08:42
PROVIDERS: ADMIT Obstetrics & Gynecology Gynecology; ATTEND Obstetrics & Gynecology Gynecology
DX: O11.3 Pre-existing hypertension with pre-eclampsia, third trimester (principal); O99.213 Obesity complicating pregnancy, third trimester; E66.9 Obesity, unspecified; O60.03 Preterm labor without delivery, third trimester; Z3A.31 31 weeks gestation of pregnancy; Z88.6 Allergy status to analgesic agent; Z68.41 Body mass index [BMI] 40.0-44.9, adult
CPT/HCPCS: 36415; 76705; 76770; 76805; 76815; 76819; 81001; 82565; 83615; 83735; 84156; 84450; 84460; 84550; 85027; 86850; 86900; 86901; 96361; 96365; 96366; 96372; G0378; J0702; J3475; J7030; J7120

== ENCOUNTER 2017-10-15 15:26 | Inpatient (IN) | payer MEDICAID ==
[2017-10-15] MEDS ORDERED: APRESOLINE IV PRN (16:33)
[2017-10-15 16:40] LABS: Hematocrit 32.4 % (30.3-42.9); Mean Corpuscular HGB Conc 34 % (30-34); Mean Corpuscular Volume 74 fl (79-97); Platelet Count 279 K/mm3 (140-440); Red Blood Count 4.41 M/mm3 (3.65-5.03); Red Cell Distribution Width 18.8 % (13.2-15.2)
[2017-10-15 16:57] LABS: Alanine Aminotransferase 48 units/L (7-56)
[2017-10-15 17:00] LABS: Mean Corpuscular Hemoglobin 25 pg (28-32)
[2017-10-15 17:05] LABS: Bacteria,Urine 2+ /HPF (Negative); Bilirubin,Urine NEG (Negative); Blood,Urine NEG (Negative); Color,Urine Red (Yellow); Urobilinogen,Urine < 2.0 mg/dL (<2.0)
[2017-10-15] MEDS ORDERED: MAGNESIUM SULFATE 4GM/100ML 4 GM/100 ML BAG IV ONE ×2 (17:16→20:02)
[2017-10-15] MEDS ORDERED: MAGNESIUM SULFATE 40GM/1000ML 40 GM/1,000 ML BAG IV SCH ×2 (17:35→21:00)
--- NOTE | 2017-10-15 17:35 | Ultrasound Report ---
FINAL REPORT EXAM: US OB BPP WO NON-STRESS HISTORY: bpp TECHNIQUE: Ultrasound examination of the gravid uterus for biophysical profile evaluation of the fetus PRIORS: Ob ultrasound 10/15/2017 FINDINGS: There is a single viable intrauterine with documented cardiac activity. The amniotic fluid volume is normal. heart rate: 144 bpm Amniotic fluid index: 13.8 cm Evaluation for biophysical profile yields the following score as reported by technologist from real-time exam: respiratory motion (minimum one episode): 2 Gross body movement (minimum 3 movements): 2 tone (minimum one flexion and extension): 2 Amniotic fluid volume (at least 2 cm pocket in vertical diameter): 2 IMPRESSION: Single viable intrauterine with 8/8 biophysical profile score during the sonographic evaluation
[2017-10-15] MEDS ORDERED: MAGNESIUM SULFATE IV ONE (17:36)
--- NOTE | 2017-10-15 17:37 | Ultrasound Report ---
FINAL REPORT EXAM: US OB LIMITED HISTORY: harpal , gestational with clinical age 34 weeks 5 days TECHNIQUE: Ultrasound evaluation of the gravid uterus PRIORS: Biophysical profile 10/15/2017 FINDINGS: There is a single viable intrauterine with documented cardiac activity. The quantity of visualized amniotic fluid appears grossly normal. Heart rate: 144 beats per minute position: Cephalic Amniotic fluid index: 13.8cm IMPRESSION: Single viable intrauterine with the above parameters
[2017-10-15] MEDS ORDERED: MAGNESIUM SULFATE 4GM/100ML 4 GM/100 ML BAG IV SCH (18:00)
[2017-10-15] MEDS: MAGNESIUM SULFATE 40 GM in NACL 0.9% 1000 ML 1,000 ML IV SCH (18:30)
[2017-10-15] MEDS ORDERED: MILK OF MAGNESIA PO PRN (19:52)
[2017-10-15] MEDS ORDERED: ZOFRAN IV PRN (19:52)
[2017-10-15] MEDS ORDERED: COLACE PO PRN (19:52)
[2017-10-15] MEDS ORDERED: AMBIEN PO PRN (19:52)
[2017-10-15] MEDS ORDERED: SODIUM CHLORIDE FLUSH SYRINGE 10 ML IV PRN (19:52)
[2017-10-15] MEDS ORDERED: CELESTONE SOLUSPAN IM SCH (20:00)
--- NOTE | 2017-10-15 20:11 | History and Physical Report ---
History of Present Illness Date of examination: 10/15/17 Date of admission: 10/15/17 15:26 Chief complaint: Elevated BP's History of present illness: Pt is a 42yo BF EDC 11/21/17; EGA 34 5/7 weeks presented to the office with BP 200/112. She denies headaches, blurred vision or epigastric pains. She has Chronic hypertension for which she takes Labetolol 200mg BID, and has a history of previous C Section x 2 ( the 1st delivery @ 31 weeks for severe pre-eclampsia ) for which she is co-managed with [facility]. records are available and GBS is unknown. Past History Past Medical History: hypertension Past Surgical History: section (x2) Social history: no significant social history, - Obstetrical History Expected Date of Delivery: 11/21/17 Actual Gestation: 34 Week(s) 5 Day(s) : 6 Medications and Allergies Allergies Allergy/AdvReac Type Severity Reaction Status Date / Time aspirin AdvReac Unknown Verified 10/28/14 05:08 Home Medications Medication Instructions Recorded Confirmed Last Taken Type Eac808/Iron Fum/Folic/Docusate 1 each PO QDAY #30 tablet 10/27/14 10/15/1710/14 Rx [ 19 Tablet] Labetalol [Normodyne TAB] 200 mg PO BID #60 tablet 09/24/17 10/15/17 10/15/17 08 :00 Rx Doxylamine Succinate [Unisom] 25 mg PO PRN 10/15/17 10/15/17 10/14/17 History Active Meds: Active Medications Acetaminophen (Tylenol) 650 mg PO Q4H PRN PRN Reason: Pain MILD(1-3)/Fever >100.5/ARAUJO Betamethasone Acet/Betameth SodPhos ([place]elestone Soluspan) 12 mg IM Q24HR COREY Stop: 10/16/17 10:01 Docusate Sodium (Colace) 100 mg PO Q12H PRN PRN Reason: Constipation Hydralazine HCl (Apresoline) 10 mg IV Q30MIN PRN PRN Reason: Blood Pressure Last Admin: 10/15/17 19:40 Dose: 10 mg Lactated Ringer's (Lactated Ringers) 1,000 mls @ 75 mls/hr IV DIRECT COREY Magnesium Sulfate 40 gm/ (Sodium Chloride) 1,080 mls @ 50 mls/hr IV DIRECT COREY Last Admin: 10/15/17 18:30 Dose: 50 mls/hr Magnesium Sulfate (Magnesium Sulfate 4gm/100ml) 4 gm in 100 mls @ 100 mls/hr IV ONCE COREY Magnesium Sulfate (Magnesium Sulfate 40gm/1000ml) 40 gm in 1,000 mls @ 50 mls/ hr IV DIRECT COREY Magnesium Sulfate (Magnesium Sulfate 4gm/100ml) 4 gm in 100 mls @ 300 mls/hr IV ONCE ONE Stop: 10/15/17 20:21 Labetalol HCl (Normodyne) 200 mg PO BID COREY Magnesium Hydroxide (Milk Of Magnesia) 30 ml PO QHS PRN PRN Reason: Laxative Effect Multivitamins/Iron/Calcium ( Vitamin) 1 each PO QDAY COREY Ondansetron HCl (Zofran) 4 mg IV Q6H PRN PRN Reason: Nausea And Vomiting Simethicone (Mylicon) 80 mg PO Q6H PRN PRN Reason: Gas pain Sodium Chloride (Sodium Chloride Flush Syringe 10 Ml) 10 ml IV PRN PRN PRN Reason: LINE FLUSH Zolpidem Tartrate (Ambien) 10 mg PO ONCE PRN PRN Reason: Sleep Review of Systems All systems: negative - Vital Signs Vital signs: Vital Signs Temp Pulse Resp BP 98.3 F 78 20 204/115 10/15/17 16:00 10/15/17 16:00 10/15/17 16:00 10/15/17 16:00 Temp Pulse Resp BP Pulse Ox 98.0 F 117 H 22 143/89 98 10/15/17 19:30 10/15/17 20:03 10/15/17 19:30 10/15/17 20:00 10/15/17 20:03 - Physical Exam Breasts: Positive: deferred Cardiovascular: Regular rate Lungs: Positive: Clear to auscultation Abdomen: Positive: normal appearance Genitourinary (Female): Positive: normal external genitalia Uterus: Positive: enlarged Extremities: Positive: edema - Obstetrical FHR: category 1 Uterine Contraction Monitor Mode: External Uterine Contraction Pattern: Absent Results Result Diagrams: 10/15/17 15:55 10/15/17 15:55 Abnormal lab results 10/15/17 10/15/17 Range/Units 15:55 15:55 MCV 74 L (79-97) fl MCH 25 L (28-32) pg RDW 18.8 H (13.2-15.2) % Creatinine 0.6 L (0.7-1.2) mg/dL AST 55 H (5-40) units/L Lactate Dehydrogenase 310 H (91-180) units/L All other labs normal. Ultrasound: pending (BPP 8/8; ALINA 13.8) Assessment and Plan - Patient Problems (1) 34 weeks gestation of Onset Date: 10/15/17 Current Visit: Yes Status: Acute Plan to address problem: A: IUP @ 34 5/7 weeks Chronic hypertension with Superimposed Pre-eclampsia Previous C Section x 2 AMA Morbid Obesity P: Admit to L&D for Delivery by C Section in am Will begin IV antihypertensives - IV hydralazine prn Begin Magnesium sulfate and Steroids NPO after MN (2) Severe pre-eclampsia affecting seventh Onset Date: 10/15/17 Current Visit: Yes Status: Acute (3) Chronic hypertension with superimposed preeclampsia Onset Date: 10/15/17 Current Visit: Yes Status: Acute
[2017-10-15] MEDS: TYLENOL PO PRN (20:55)
[2017-10-15] MEDS: NORMODYNE PO SCH (21:08)
[2017-10-15] MEDS: MYLICON PO PRN (21:14)
[2017-10-16] MEDS: LACTATED RINGERS 1,000 ML IV SCH ×2 (04:00→06:28)
[2017-10-16] MEDS ORDERED: REGLAN IV ONE ×2 (07:02→07:28)
[2017-10-16] MEDS ORDERED: BICITRA PO ONE ×2 (07:02→07:28)
[2017-10-16] MEDS ORDERED: PEPCID IV ONE (07:02)
[2017-10-16] MEDS ORDERED: PEPCID IV NR (07:28)
--- NOTE | 2017-10-16 07:37 | Anesthesia Consultation ---
Anesthesia Consult and Med Hx Date of service: 10/16/17 - Airway Anesthetic Teeth Evaluation: Good ROM Head & Neck: Adequate Mental/Hyoid Distance: Adequate Mallampati Class: Class III Intubation Access Assessment: Possibly Difficult - Pre-Operative Health Status ASA Pre-Surgery Classification: ASA3 Proposed Anesthetic Plan: Epidural, Spinal - Pulmonary Hx Smoking: No Hx Asthma: No COPD: No Hx Pneumonia: No - Cardiovascular System Hx Hypertension: Yes (chronic on PIH, on labetalol) - Central Nervous System Hx Seizures: No Hx Psychiatric Problems: No - Gastrointestinal Hx Gastroesophageal Reflux Disease: Yes - Endocrine Hx Renal Disease: No Hx End Stage Renal Disease: No Hx Hypothyroidism: No Hx Hyperthyroidism: No - Hematic Hx Anemia: No Hx Sickle Cell Disease: No - Other Systems Hx Alcohol Use: No Hx Obesity: Yes (Morbid obesity BMI 46.9)
--- NOTE | 2017-10-16 07:38 | Anesthesia Day of Surgery ---
Anesthesia Day of Surgery - Day of Surgery Patient Examined: Yes Patient H&P Reviewed: Yes Patient is NPO: Yes Beta Blockers: Yes
[2017-10-16] MEDS ORDERED: NARCAN 0.4 MG/1 ML IV PRN ×2 (08:00→10:00)
[2017-10-16] MEDS ORDERED: NACL 0.9% IR ONE (08:00)
[2017-10-16] MEDS ORDERED: DILAUDID IV PRN (08:00)
[2017-10-16] MEDS ORDERED: SODIUM CHLORIDE FLUSH SYRINGE 10 ML IV PRN ×2 (08:00→10:00)
[2017-10-16] MEDS ORDERED: ZOFRAN IV PRN (08:00)
[2017-10-16] MEDS ORDERED: LACTATED RINGERS 1,000 ML IV SCH (08:00)
[2017-10-16] MEDS ORDERED: PHENERGAN PR PRN (08:00)
[2017-10-16] MEDS ORDERED: PHENERGAN PO PRN (08:00)
[2017-10-16] MEDS ORDERED: PITOCin/NS 20 UNIT/1000ML DRIP 20 UNITS/1,000 ML BAG IV SCH ×3 (08:00→10:00)
[2017-10-16] MEDS ORDERED: TORADOL IV PRN (08:00)
[2017-10-16] MEDS ORDERED: ANCEF/STERILE WATER 2 GM/20 ML 2 GM/20 ML SYRINGE IV NR (08:00)
[2017-10-16] MEDS ORDERED: WATER FOR IRRIG STERILE IR ONE (08:00)
[2017-10-16] MEDS ORDERED: NEO SYNEPHRINE/NS Syringe(OR USE) IV ONE (08:30)
[2017-10-16] MEDS ORDERED: ASTRAMORPH PF 10MG/10ML ONE (09:05)
--- NOTE | 2017-10-16 09:21 | Operative Report ---
Operative Report Operative Report: Date of procedure: 10/16/2017 Pre-operative diagnosis: 1. Intrauterine at 34-6/7 weeks 2. Chronic hypertension with superimposed preeclampsia 3. Previous 2 4. Morbid obesity 5. Advanced maternal age Post-operative diagnosis: Same Procedure name(s): Repeat low transverse section Surgeon: Jabier Garcia MD Steel Loader: None Anesthesia: Spinal epidural anesthesia EBL: 600 mls Findings: A 2054 g female Apgars 8 at 1 minute and 9 at 5 minutes. Clear amniotic fluid. Normal uterus with lower uterine adhesions. Normal tubes and ovaries bilaterally. Procedure: After the patient was prepped and draped in usual sterile fashion, and after satisfactory level of epidural anesthesia was obtained, the skin knife was used to make a transverse skin incision through the previous skin scars. The incision was excised down to layer of the fascia, which was nicked in the midline and extended laterally using the Bovie cautery. The rectus muscles were dissected off the rectus fascia both superiorly and inferiorly. The rectus bellies in the midline, and the peritoneum was entered under direct visualization. The peritoneal incision was extended superiorly and inferiorly. A bladder flap was created and the bladder blade was then placed. The uterus was scored in a curvilinear linear fashion, entered in the midline revealing clear amniotic fluid. The infant's head was delivered onto the surgical field with the aid of a vacuum, and the oropharynx and nasopharynx were bulb suctioned. The rest of the 's body was delivered, cord was doubly clamped and cut and the was handed to the waiting respiratory team. Cord blood was then obtained. The placenta was manually removed from the uterus, and the uterus removed from its normal anatomical position. After gentle uterine lavage, the incision was inspected and found to be without extensions. It was then closed in 2 layers using 0 Vicryl suture in a running interlocking fashion, the second layer imbricating the first. After good hemostasis was achieved, copious amounts or irrigation was performed, and the gutters were suctioned free of blood and blood clots. The Tisseel sealant was sprayed across the uterine incision. The uterus was then returned to its normal anatomical position, and after excellent hemostasis assured, the peritoneum was re-approximated using 3-0 Vicryl suture in a running interlocking fashion, and then the rectus muscles were re-approximated using 3- 0 Vicryl suture in a [id number] configuration. The fascia was then re- approximated using 0 Vicryl suture in running interlocking fashion. The subcutaneous layer was made hemostatic using Bovie cautery, the Tisseel sealant was sprayed across the fascial incision and the skin edges re-approximated using 4-0 Vicryl suture in a sub-cuticular fashion. Patient tolerated the procedure well was transported to recovery in stable condition.
[2017-10-16] MEDS ORDERED: MOTRIN PO PRN (10:00)
[2017-10-16] MEDS ORDERED: ANCEF/NS 1 GM/50 ML 1 GM/50 ML BAG IV SCH (10:00)
[2017-10-16] MEDS ORDERED: TUCKS PAD TP PRN (10:00)
[2017-10-16] MEDS ORDERED: LANSINOH TP PRN (10:00)
[2017-10-16] MEDS ORDERED: NORCO 5/325 PO PRN (10:00)
[2017-10-16] MEDS: NORMODYNE PO SCH ×2 (11:20→21:25)
[2017-10-16] MEDS: ceFAZolin 1 GM in NACL 0.9% 20 ML IV SCH (16:38)
[2017-10-16] MEDS: D5LR 1,000 ML IV SCH (19:53)
[2017-10-16] MEDS ORDERED: SENOKOT PO PRN (22:00)
[2017-10-16 22:01] LABS: Hematocrit 30.6 % (30.3-42.9); Hemoglobin 10.2 gm/dl (10.1-14.3)
[2017-10-17] MEDS: ceFAZolin 1 GM in NACL 0.9% 20 ML IV SCH (01:42)
[2017-10-17] MEDS: MAGNESIUM SULFATE 40 GM in NACL 0.9% 1000 ML 1,000 ML IV SCH (02:11)
[2017-10-17] MEDS: TYLENOL PO PRN ×2 (03:57→10:09)
[2017-10-17] MEDS: MYLICON PO PRN ×2 (03:59→21:06)
[2017-10-17] MEDS: D5LR 1,000 ML IV SCH (05:38)
[2017-10-17] MEDS ORDERED: BOOSTRIX IM ONE (06:00)
[2017-10-17] MEDS ORDERED: M-M-R II VACCINE SUB-Q ONE (10:00)
[2017-10-17] MEDS: NORMODYNE PO SCH ×2 (10:10→21:00)
[2017-10-17] MEDS: FEOSOL PO SCH (10:10)
[2017-10-17] MEDS: PRENATAL VITAMIN PO SCH (10:10)
--- NOTE | 2017-10-17 10:53 | Progress Note ---
Assessment and Plan - Patient Problems (1) 34 weeks gestation of Onset Date: 10/15/17 Current Visit: Yes Status: Resolved (2) Severe pre-eclampsia affecting seventh Onset Date: 10/15/17 Current Visit: Yes Status: Resolved (3) Chronic hypertension with superimposed preeclampsia Onset Date: 10/15/17 Current Visit: Yes Status: Resolved (4) Status post Onset Date: 10/17/17 Current Visit: Yes Status: Resolved Plan to address problem: A: S/P Repeat C Section - POD #1 Chronic hypertension - currently on Labetolol 200mg BID Asymptomatic anemia - stable P: Continue RPOC Will add Procardia 30mg XL QD Anticipate discharge in 24-48hrs. Subjective - Subjective Date of service: 10/17/17 Principal diagnosis: s/p Repeat C Section - POD #1 Interval history: Pt is feeling well without complaints. Bleeding improved. She denies headaches , blurred vision or epigastric pains. Patient reports: appetite normal, voiding normally, pain well controlled, flatus , ambulating normally [place]: doing well, in NICU Objective - Vital Signs Latest vital signs: Vital Signs Temp Pulse Resp BP BP Pulse Ox 10/17/17 10:10 80 170/91 10/17/17 07:40 98.6 F 76 18 171/90 96 10/17/17 06:30 86 18 146/86 94 10/17/17 04:50 98.4 F 76 18 144/83 95 10/17/17 02:40 85 18 141/78 93 10/17/17 00:35 97.5 F L 89 18 133/73 94 10/16/17 21:25 100 H 160/76 10/16/17 18:05 98.6 F 92 H 18 96 10/16/17 16:15 98.2 F 93 H 18 94 10/16/17 11:20 93 H 145/87 10/16/17 11:19 24 Intake and Output 10/16/17 10/17/17 10/17/17 22:59 06:59 14:59 Intake Total 1260 1240 240 Output Total 450 1100 Balance 810 140 240 Intake: IV 1080 1000 D5lr 1,000 ml @ 125 mls/ 1000 hr IV DIRECT COREY Rx#: [id number] Magnesium Sulfate 40 gm 1080 In NaCl 0.9% 1000 ml 1, 000 ml @ 50 mls/hr IV DIRECT [facility] Rx#:[id number] Oral 180 240 Intake, Free Water 240 Output: Urine 450 1100 Indwelling Catheter 450 200 Void 900 Other: Total, Intake Amount 180 120 Total, Output Amount 150 600 # Voids Void 1 - Exam Breasts: Present: deferred Cardiovascular: Present: Regular rate Lungs: Present: Clear to auscultation Abdomen: Present: normal appearance, soft Uterus: Present: normal, firm, fundal height below umbilicus Extremities: Present: edema Incision: Present: normal, dry, intact, dressed - Labs Labs: Abnormal lab results 10/16/17 10/16/17 10/17/17 Range/Units 11:37 18:21 00:10 Magnesium 5.20 H 5.20 H 4.50 H (1.7-2.3) mg/dL 10/17/17 Range/Units 04:50 Magnesium 4.10 H (1.7-2.3) mg/dL Laboratory Tests 10/15/17 10/15/17 10/15/17 15:55 15:55 16:10 WBC 10.2 RBC 4.41 Hgb 11.0 Hct 32.4 MCV 74 L MCH 25 L MCHC 34 RDW 18.8 H Plt Count 279 Creatinine 0.6 L Estimated GFR > 60 Uric Acid 6.0 Magnesium AST 55 H ALT 48 Lactate Dehydrogenase 310 H Urine Color Red Urine Turbidity Clear Urine pH 6.0 Ur Specific [place] 1.008 Urine Protein 100 mg/dl Urine Glucose (UA) Neg Urine Ketones Neg Urine Blood Neg Urine Nitrite Neg Urine Bilirubin Neg Urine Urobilinogen < 2.0 Ur Leukocyte Esterase Neg Urine WBC (Auto) 1.0 Urine RBC (Auto) 3.0 U Epithel Cells (Auto) 3.0 Urine Bacteria (Auto) 2+ RPR Blood Type Antibody Screen 10/15/17 10/15/17 10/16/17 16:10 16:10 00:05 WBC RBC Hgb Hct MCV MCH MCHC RDW Plt Count Creatinine Estimated GFR Uric Acid Magnesium 4.70 H AST ALT Lactate Dehydrogenase Urine Color Urine Turbidity Urine pH Ur Specific [place] Urine Protein Urine Glucose (UA) Urine Ketones Urine Blood Urine Nitrite Urine Bilirubin Urine Urobilinogen Ur Leukocyte Esterase Urine WBC (Auto) Urine RBC (Auto) U Epithel Cells (Auto) Urine Bacteria (Auto) RPR Nonreactive Blood Type O POSITIVE Antibody Screen Negative 10/16/17 10/16/17 10/16/17 05:16 11:37 18:21 WBC RBC Hgb Hct MCV MCH MCHC RDW Plt Count Creatinine Estimated GFR Uric Acid Magnesium 5.60 H 5.20 H 5.20 H AST ALT Lactate Dehydrogenase Urine Color Urine Turbidity Urine pH Ur Specific [place] Urine Protein Urine Glucose (UA) Urine Ketones Urine Blood Urine Nitrite Urine Bilirubin Urine Urobilinogen Ur Leukocyte Esterase Urine WBC (Auto) Urine RBC (Auto) U Epithel Cells (Auto) Urine Bacteria (Auto) RPR Blood Type Antibody Screen 10/16/17 10/17/17 10/17/17 21:25 00:10 04:50 WBC RBC Hgb 10.2 Hct 30.6 MCV MCH MCHC RDW Plt Count Creatinine Estimated GFR Uric Acid Magnesium 4.50 H 4.10 H AST ALT Lactate Dehydrogenase Urine Color Urine Turbidity Urine pH Ur Specific [place] Urine Protein Urine Glucose (UA) Urine Ketones Urine Blood Urine Nitrite Urine Bilirubin Urine Urobilinogen Ur Leukocyte Esterase Urine WBC (Auto) Urine RBC (Auto) U Epithel Cells (Auto) Urine Bacteria (Auto) RPR Blood Type Antibody Screen
[2017-10-17] MEDS: PERCOCET 5/325 PO PRN ×2 (15:55→21:00)
[2017-10-17] MEDS: PROCARDIA XL PO SCH (15:57)
[2017-10-18] MEDS: PERCOCET 5/325 PO PRN ×3 (06:26→22:08)
--- NOTE | 2017-10-18 09:33 | Progress Note ---
Assessment and Plan - Patient Problems (1) 34 weeks gestation of Onset Date: 10/15/17 Current Visit: Yes Status: Resolved (2) Severe pre-eclampsia affecting seventh Onset Date: 10/15/17 Current Visit: Yes Status: Resolved (3) Chronic hypertension with superimposed preeclampsia Onset Date: 10/15/17 Current Visit: Yes Status: Resolved (4) Status post Onset Date: 10/17/17 Current Visit: Yes Status: Resolved Plan to address problem: A: S/P Repeat C Section - POD #2 Doing well Chronic hypertension - improved on Labetolol 200mg BID and Procardia XL 30mg QD Asymptomatic anemia - stable P: May go home tomorrow. Subjective - Subjective Date of service: 10/18/17 Principal diagnosis: s/p Repeat C Section - POD #2 Interval history: Pt is feeling well without complaints. Bleeding improved. She denies headaches , blurred vision or epigastric pains. Patient reports: appetite normal, voiding normally, pain well controlled, flatus , ambulating normally, no nauseated [place]: doing well, in NICU Objective - Vital Signs Latest vital signs: Vital Signs Temp Pulse Resp BP BP Pulse Ox 10/18/17 08:55 98.7 F 86 20 153/83 96 10/18/17 04:50 98.2 F 80 18 155/76 99 10/18/17 00:15 98.1 F 87 18 138/77 94 10/17/17 21:00 106 H 159/89 10/17/17 20:55 98.2 F 103 H 18 159/89 95 10/17/17 16:40 99.1 F 93 H 20 147/78 97 10/17/17 15:55 20 10/17/17 12:25 98.7 F 20 152/83 10/17/17 12:03 99.1 F 18 10/17/17 12:01 99.1 F 87 18 106/63 97 10/17/17 12:00 98.7 F 84 20 152/83 95 10/17/17 10:10 80 170/91 Intake and Output 10/17/17 10/18/17 10/18/17 22:59 06:59 14:59 Intake Total 480 120 Balance 480 120 Intake: Oral 480 120 Other: Total, Intake Amount 120 120 # Voids Void 5 1 - Exam Breasts: Present: deferred Cardiovascular: Present: Regular rate Lungs: Present: Clear to auscultation Abdomen: Present: normal appearance, soft, other (edema) Uterus: Present: normal, firm, fundal height below umbilicus Extremities: Present: edema Incision: Present: normal, dry, intact
--- NOTE | 2017-10-18 09:43 | Discharge Summary ---
Providers - Providers Date of Admission: 10/15/17 15:26 Date of discharge: 10/19/17 Attending physician: JULIA KAM Primary care physician: JULIA KAM Hospitalization Reason for admission: section Disposition: DC-30 STILL A PATIENT - Discharge Diagnoses (1) 34 weeks gestation of Status: Resolved (2) Severe pre-eclampsia affecting seventh Status: Resolved (3) Chronic hypertension with superimposed preeclampsia Status: Resolved (4) Status post Status: Resolved Plan - Discharge Medications Prescriptions: Ferrous Sulfate [Feosol 325 MG tab] 325 mg PO BID #60 tablet HYDROcodone/APAP 5-325 [[place] 5/325] 1 each PO Q6HR PRN #30 tablet PRN Reason: Pain Ibuprofen [Motrin] 800 mg PO Q8HR PRN #30 tablet PRN Reason: Moder Pain Unrelieved By [place] Labetalol HCl 200 mg PO BID #60 tablet Vit Calc,Iron,Folic [ Vitamins] 1 each PO DAILY #30 tablet - Provider Discharge Summary Additional instructions: [] Smoking cessation referral if applicable(refer to patient education folder for contact #) [] Refer to [facility]'s [facility] Booklet Call your doctor immediately for: * Fever > 100.5 * Heavy vaginal bleeding ( >1 pad per hour) * Severe persistent headache * Shortness of breath * Reddened, hot, painful area to leg or breast * Drainage or odor from incision. * Keep incision clean and dry at all times and follow doctor's instructions regarding bathing/showering - Follow up plan Follow up: JULIA KAM MD [Primary Care Provider] - 7 Days
[2017-10-18] MEDS: PRENATAL VITAMIN PO SCH (11:00)
[2017-10-18] MEDS: FEOSOL PO SCH (11:00)
[2017-10-18] MEDS: PROCARDIA XL PO SCH (11:00)
[2017-10-18] MEDS: NORMODYNE PO SCH ×2 (11:00→22:07)
[2017-10-19] MEDS: PERCOCET 5/325 PO PRN (05:07)
[2017-10-19] MEDS: NORMODYNE PO SCH ×2 (07:28→07:29)
[2017-10-19] MEDS: FEOSOL PO SCH (08:43)
[2017-10-19] MEDS: PRENATAL VITAMIN PO SCH (08:49)
[2017-10-19 11:46] VITALS: BP 138/66
[2017-10-19] MEDS ORDERED: NORCO 5/325 PO ONE (13:00)
== END 2017-10-19 12:40 | disposition home or self-care (01) | DRG 765 ==
LOC: LD 15:26 → OB 10-16 10:48
PROVIDERS: ADMIT Obstetrics & Gynecology; ATTEND Obstetrics & Gynecology
PROC: 3E0234Z Introduction of Serum, Toxoid and Vaccine into Muscle, Percutaneous Approach (ICD-10-PCS; 2017-10-15)
PROC: 10D00Z1 Extraction of Products of Conception, Low, Open Approach (ICD-10-PCS; principal; 2017-10-16)
DX: O11.4 Pre-existing hypertension with pre-eclampsia, complicating childbirth (principal); Z68.42 Body mass index [BMI] 45.0-49.9, adult; O99.214 Obesity complicating childbirth; O99.02 Anemia complicating childbirth; D64.9 Anemia, unspecified; E66.01 Morbid (severe) obesity due to excess calories; Z3A.34 34 weeks gestation of pregnancy; Z37.0 Single live birth; Z71.3 Dietary counseling and surveillance; Z23 Encounter for immunization; O10.02 Pre-existing essential hypertension complicating childbirth
CPT/HCPCS: 36415; 76815; 76819; 81001; 82565; 83615; 83735; 84450; 84460; 84550; 85014; 85018; 85027; 86592; 86850; 86900; 86901; 88307; 99211; C9250; G0463; J0360; J0690; J0702; J1170; J2274; J2370; J2405; J2590; J2765; J3475; J7030; J7120; J7121

== ENCOUNTER 2019-07-30 14:34 | Emergency (ER) | payer MEDICAID ==
--- NOTE | 2019-07-30 18:38 | Emergency Department Report ---
ED Laceration HPI - HPI Chief Complaint: Wound/Laceration Stated Complaint: RT ARM LAC Time Seen by Provider: 07/30/19 17:28 Location: Upper Extremity Severity: mild Tetanus Status: Up to Date Laceration Symptoms: Yes Pain, No Foreign Body Sensation, No Numbness, No Weakness Other History: Patient is a 44-year-old female who presents to ED complaining of accidental laceration to the right palm. Patient states that she was cutting up a can when the Accidentally Cut Her Palm ED Review of Systems ROS: Stated complaint: RT ARM LAC Other details as noted in HPI Comment: All other systems reviewed and negative ED Past Medical Hx - Past Medical History Hx Hypertension: Yes (chronic on PIH, on labetalol) Hx Congestive Heart Failure: No Hx Diabetes: No Hx Deep Vein Thrombosis: No Hx Renal Disease: No Hx Sickle Cell Disease: No Hx Seizures: No Hx Asthma: No Hx COPD: No Hx HIV: No - Surgical History Past Surgical History?: Yes Additional Surgical History: - Social History Smoking Status: Never Smoker Substance Use Type: None - Medications Home Medications: Home Medications Medication Instructions Recorded Confirmed Last Taken Type Wer322/Iron Fum/Folic/Docusate 1 each PO QDAY #30 tablet 10/27/14 10/15/17 10/14/17 Rx [ 19 Tablet] labetaloL [Labetalol 200mg TAB] 200 mg PO BID #60 tablet 09/24/17 10/15/17 10/15/17 08:00 Rx Doxylamine Succinate [Unisom] 25 mg PO PRN 10/15/17 10/15/17 10/14/17 History Ferrous Sulfate [Feosol 325 MG tab] 325 mg PO BID #60 tablet 10/16/17 Unknown Rx HYDROcodone/APAP 5-325 [[place] 1 each PO Q6HR PRN #30 tablet 10/16/17 Unknown Rx 5/325] Labetalol HCl 200 mg PO BID #60 tablet 10/16/17 Unknown Rx Vit Calc,Iron,Folic 1 each PO DAILY #30 tablet 10/16/17 Unknown Rx [ Vitamins] NIFEdipine XL [Procardia Xl] 30 mg PO QDAY #30 tablet 10/19/17 Unknown Rx Ibuprofen [Motrin 800 MG tab] 800 mg PO Q8HR PRN #30 tablet 07/30/19 Unknown Rx cephALEXin [Keflex] 500 mg PO Q12HR #14 cap 07/30/19 Unknown Rx Laceration Physical Exam - Exam General: Vital signs noted. No distress. Alert and acting appropriately. Wound Length (cm): 2 Laceration Location: Upper Extremity Laceration Exam: Yes Normal Distal CMS, No Foreign Body, No Exposed Tendon, Vessel, or Nerve, No Tendon Injury ED Course Vital Signs 07/30/19 15:20 Temperature 99.1 F Pulse Rate 101 H Respiratory 20 Rate Blood Pressure 188/116 O2 Sat by Pulse 99 Oximetry - Laceration /Wound Repair Right Hand Wound Location: upper extremity Wound Length (cm): 2 Wound's Depth, Shape: superficial, linear Wound Explored: clean Betadine Prep?: Yes Anesthesia: 1% Lidocaine Wound Repaired With: sutures Suture Size/Type: 3:0 Number of Sutures: 10 Layer Closure?: No Sterile Dressing Applied?: Yes ED Medical Decision Making - Medical Decision Making This 44-year-old female presents with laceration to the right palm The 2cm laceration wound was prepped and draped in sterile fashion. Anesthesia was achieved with 4mL of 1% lidocaine. The wound was irrigated with 200cc NS and explored. There were no foreign bodies The wound was reapproximated in 1 layer with 10 sutures suing with three 4-0 monofilament sutures in the dermis with continuous sutures percutaneously. There was excellent reapproximation of the wound edges. The patient tolerated the procedure without complication The patient to follow-up with primary care physician in 7-10 days for suture removal. Patient states that she does have a primary care physician and she will follow- up. Vital signs are normal patient is in no acute distress Critical care attestation.: If time is entered above; I have spent that time in minutes in the direct care of this critically ill patient, excluding procedure time. ED Disposition Clinical Impression: Laceration of right palm Disposition: DC-01 TO HOME OR SELFCARE Is pt being admited?: No Does the pt Need Aspirin: No Condition: Stable Instructions: Suture Care (ED), Finger Laceration (ED) Additional Instructions: Make sure to follow up with the primary care physician as discussed. Take all your medications as you've been prescribed. If you have any worsening symptoms or develop new symptoms please return to ED immediately. Prescriptions: cephALEXin [Keflex] 500 mg PO Q12HR #14 cap Ibuprofen [Motrin 800 MG tab] 800 mg PO Q8HR PRN #30 tablet PRN Reason: Moder Pain Unrelieved By [place] Referrals: PRIMARY CARE, [Primary Care Provider] - 3-5 Days Forms: Accompanied Note, Work/School Release Form(ED) Time of Disposition: 18:48
[2019-07-30 19:27] VITALS: BP 168/105
== END 2019-07-30 19:15 | disposition home or self-care (01) ==
LOC: ED 14:34
DX: S61.411A Laceration without foreign body of right hand, initial encounter (principal); I10 Essential (primary) hypertension; Z98.890 Other specified postprocedural states; Z79.1 Long term (current) use of non-steroidal anti-inflammatories (NSAID); Z79.899 Other long term (current) drug therapy; Z88.6 Allergy status to analgesic agent; W45.8XXA Other foreign body or object entering through skin, initial encounter; Y93.89 Activity, other specified; Y92.89 Other specified places as the place of occurrence of the external cause; Y99.8 Other external cause status